=== PATIENT | male | born 1980 | race Hispanic/Latino ===

== ENCOUNTER 2017-10-26 15:41 | Emergency (ER) | payer BC, SELFPAY ==
[2017-10-26] MEDS ORDERED: Lidocaine Viscous Sol 2% 15 ml UD Cup ONE (16:29)
[2017-10-26] MEDS ORDERED: Sucralfate 1 GM/10 ML UDCUP ONE (16:29)
[2017-10-26] MEDS ORDERED: Mag-Al 1200 mg/1200 mg/30 ML UDCUP ONE (16:29)
--- NOTE | 2017-10-26 16:58 | RAD ---
SOFT TISSUE NECK TWO VIEWS: 10/26/17 HISTORY: Sore throat. Feels like something is stuck in the back of the throat. Difficulty swallowing. Symptoms began 30 minutes ago. Began to vomit several times in attempt to remove substance. Possibly retained steak bone. COMPARISON: None. FINDINGS: Aerodigestive tract appears to be patent. No radiopaque foreign body. Epiglottis has a normal appeara nce. There is no prevertebral soft tissue swelling. IMPRESSION: No radiopaque foreign body. Direct visualization is recommended. POS: [facility]
[2017-10-26] MEDS ORDERED: Ketorolac Tromethamine 30 MG/ML VIAL ONE (18:14)
== END 2017-10-26 18:38 | disposition home or self-care (01) ==
LOC: ERS 15:41
DX: S27.818A Other injury of esophagus (thoracic part), initial encounter (principal); E03.9 Hypothyroidism, unspecified; F17.210 Nicotine dependence, cigarettes, uncomplicated; X58.XXXA Exposure to other specified factors, initial encounter
CPT/HCPCS: 70360; 96361; 96374; 96375; J1610; J1885

== ENCOUNTER 2018-10-06 17:28 | Emergency (ER) | payer BC ==
[2018-10-06 19:03] LABS: Bilirubin Negative (Negative); Blood, Urine Negative (Negative); Clarity CLEAR (Clear); Glucose, Urine (Dipstick) Negative (Negative); Leukocyte Negative (Negative); Nitrite Negative (Negative); Protein, Urine (Dipstick) Negative (Neg-Trace); Specific Gravity, Urine 1.025 (1.002-1.036); Urobilinogen 0.2 mg/dL (0.2-1.0)
== END 2018-10-06 20:00 | disposition home or self-care (01) ==
LOC: ERS 17:28
DX: M54.5 Low back pain (principal); E03.9 Hypothyroidism, unspecified; F17.210 Nicotine dependence, cigarettes, uncomplicated
CPT/HCPCS: 81003; 99283